=== PATIENT | male | born 1985 | race African-American/Black ===

== ENCOUNTER 2019-10-30 16:55 | Emergency (ER) | payer SELFPAY ==
[2019-10-30 19:07] VITALS: BP 128/75
--- NOTE | 2019-10-30 19:07 | ER Document Report ---
HPI - HPI Time Seen by Provider: 10/30/19 19:05 Onset: Just prior to arrival Onset/Duration: Sudden Quality of pain: Achy, Stabbing Associated Symptoms: None Exacerbated by: Denies Relieved by: Denies Similar symptoms previously: No Recently seen / treated by doctor: No Past Medical History - General Information source: Patient - Social History Smoking Status: Current Every Day Smoker Cigarette use (# per day): Yes - 20 Smoking Education Provided: Yes Frequency of alcohol use: Occasional Drug Abuse: None Family History: Reviewed & Not Pertinent Pulmonary Medical History: Reports: Hx Asthma - Immunizations Hx Diphtheria, Pertussis, Tetanus Vaccination: Yes Vertical Provider Document - CONSTITUTIONAL Agree With Documented VS: Yes - INFECTION CONTROL TRAVEL OUTSIDE OF THE [place] IN LAST 30 DAYS: No - HEENT HEENT: Atraumatic, Conjuctival Injection, Normocephalic, PERRLA - NECK Neck: Normal Inspection - RESPIRATORY Respiratory: Breath Sounds Normal - CARDIOVASCULAR Cardiovascular: Regular Rate, Regular Rhythm - GI/ABDOMEN Gastrointestinal: Abdomen Soft, Abdomen Non-Tender, Abdominal Guarding - BACK Back: Normal Inspection - MUSCULOSKELETAL/EXTREMETIES Musculoskeletal/Extremeties: MAEW - Palpable muscle spasm subscapular Yoan on the left radiating down from the lateral cervical count to the subscapular area. Course - Vital Signs Vital signs: Temp Pulse Resp BP Pulse Ox 98.4 F 62 18 131/69 H 97 10/30/19 17:27 10/30/19 17:27 10/30/19 17:27 10/30/19 17:27 10/30/19 17:27 Discharge - Discharge Clinical Impression: Torticollis Disposition: HOME, SELF-CARE Instructions: Torticollis ([facility]) Prescriptions: Ibuprofen [Motrin 600 Mg Tablet] 600 mg PO TID #15 tablet Methocarbamol [Robaxin 750 mg Tablet] 750 mg PO Q4 #40 tablet
== END 2019-10-30 19:08 | disposition home or self-care (01) ==
LOC: ER 16:55
DX: M43.6 Torticollis (principal); F17.210 Nicotine dependence, cigarettes, uncomplicated
CPT/HCPCS: 99283

== ENCOUNTER 2019-11-17 18:45 | Emergency (ER) | payer SELFPAY ==
[2019-11-17 19:05] VITALS: BP 112/90
--- NOTE | 2019-11-17 19:49 | ER Document Report ---
HPI - HPI Patient complains to provider of: shoulder spasm Time Seen by Provider: 11/17/19 19:45 Onset: Last week Pain Level: 2 Context: This 33-year-old male who I saw last week for torticollis. Which has somewhat resolved however he still does have spasm subscapular Yoan on the left. He has had no recent injury no trauma to the affected area. - CONSTITUTIONAL Constitutional: DENIES: Chills Past Medical History - General Information source: Patient - Social History Smoking Status: Never Smoker Cigarette use (# per day): No Chew tobacco use (# tins/day): No Smoking Education Provided: No Frequency of alcohol use: None Drug Abuse: None Lives with: Alone Family History: Reviewed & Not Pertinent Pulmonary Medical History: Reports: Hx Asthma - Immunizations Hx Diphtheria, Pertussis, Tetanus Vaccination: Yes Vertical Provider Document - CONSTITUTIONAL Agree With Documented VS: Yes - INFECTION CONTROL TRAVEL OUTSIDE OF THE [place] IN LAST 30 DAYS: No - HEENT HEENT: Atraumatic, Conjuctival Injection, Normocephalic, PERRLA - NECK Neck: Normal Inspection - RESPIRATORY Respiratory: Breath Sounds Normal, No Respiratory Distress - CARDIOVASCULAR Cardiovascular: Regular Rate, Regular Rhythm - GI/ABDOMEN Gastrointestinal: Abdomen Soft, Abdomen Non-Tender - REPRODUCTIVE Male Genitalia: Normal Inspection - BACK Back: Normal Inspection - MUSCULOSKELETAL/EXTREMETIES Musculoskeletal/Extremeties: MAEW Notes: Spasm to subscapular area on the left. - NEURO Level of Consciousness: Awake, Alert - DERM Integumentary: Warm Course - Vital Signs Vital signs: Temp Pulse Resp BP Pulse Ox 99.7 F 51 L 20 112/90 H 99 11/17/19 19:03 11/17/19 19:03 11/17/19 19:03 11/17/19 19:03 11/17/19 19:03 Discharge - Discharge Clinical Impression: Muscle spasm Disposition: HOME, SELF-CARE Additional Instructions: Shoulder spasm Warm compresses 4-5 times a day. Must follow-up with PMD for physical therapy referral. Prescriptions: Methocarbamol [Robaxin 750 mg Tablet] 750 mg PO ASDIR PRN #40 tablet PRN Reason: Referrals: CORRINE MENDOZA MD [NO LOCAL MD] - Follow up as needed
== END 2019-11-17 19:55 | disposition home or self-care (01) ==
LOC: ER 18:45
DX: M62.838 Other muscle spasm (principal); M43.6 Torticollis; J45.909 Unspecified asthma, uncomplicated
CPT/HCPCS: 99283